=== PATIENT | female | born 1990 | race Caucasian/White ===

== ENCOUNTER 2020-11-28 14:10 | Emergency (ER) | payer OTHER ==
[~2020-11-28] VITALS: Ht 165.1 cm; Wt 59.0 kg
[2020-11-28 14:59] VITALS: BP 130/89
== END 2020-11-28 15:00 | disposition left against medical advice (07) ==
LOC: M.ERS 14:10
DX: R07.81 Pleurodynia (principal); Z76.0 Encounter for issue of repeat prescription

== ENCOUNTER 2021-09-14 10:56 | Emergency (ER) | payer OTHER ==
[~2021-09-14] VITALS: Ht 165.1 cm; Wt 59.0 kg
[2021-09-14 11:26] LABS: URINE BILIRUBIN NEGATIVE (Negative); URINE BLOOD NEGATIVE (Negative); URINE CLARITY CLEAR; URINE COLOR YELLOW; URINE GLUCOSE-RANDOM NEGATIVE (Negative); URINE KETONES NEGATIVE (Negative); URINE LEUKOCYTES-REFLEX NEGATIVE (Negative); URINE NITRITE-REFLEX NEGATIVE (Negative); URINE PROTEIN NEGATIVE (Negative); URINE UROBILINOGEN 0.2 E.U./dl (0.2-1.0)
[2021-09-14] MEDS ORDERED: HYDROCODON-ACE1 EAC7 PO (12:03)
[2021-09-14 12:44] VITALS: BP 113/76
== END 2021-09-14 12:45 | disposition home or self-care (01) ==
LOC: M.ERS 10:56
PROVIDERS: Nurse Practitioner Psychiatric/Mental Health
DX: S20.211A Contusion of right front wall of thorax, initial encounter (principal); M06.9 Rheumatoid arthritis, unspecified; Z98.51 Tubal ligation status; Z88.5 Allergy status to narcotic agent; Z88.6 Allergy status to analgesic agent; W01.0XXA Fall on same level from slipping, tripping and stumbling without subsequent striking against object, initial encounter; Y93.89 Activity, other specified; Y92.89 Other specified places as the place of occurrence of the external cause; Y99.8 Other external cause status